=== PATIENT | female | born 1955 | race Caucasian/White ===

== ENCOUNTER 2018-07-14 10:47 | Outpatient (CLI) | payer OTHER ==
--- NOTE | 2018-07-14 12:16 | BD ---
BONE DENSITOMETRY USING DEXA: HISTORY: Postmenopausal screening for osteoporosis. FINDINGS: Lumbar Spine: BMD (g/cm2) L1 0.785 T-Score: -1.9 Z-Score: 0.4 L2 0.813 T-Score: -2.0 Z-Score: -0.3 L3 1.102 T-Score: 0.2 Z-Score: 1.9 L4 1.144 T-Score: 0.8 Z-Score: 2.5 L1-L4 0.960 T-Score: -0.8 Z-Score: 0.9 Femoral Neck: 0.724 T-Score: -1.1 Z-Score: 0.3 Total Femur: 0.801 T-Score: -1.2 Z-Score: 0.0 The 10-year fracture risk for a major osteoporotic fracture is 7.2% and for a hip fracture is 0.5%. Impression: Osteopenia. POS: [facility]
== END 2018-07-14 10:48 | disposition home or self-care (01) ==
LOC: BICMAMMO 10:47
PROVIDERS: ATTEND Internal Medicine
DX: Z13.820 Encounter for screening for osteoporosis (principal); M85.89 Other specified disorders of bone density and structure, multiple sites
CPT/HCPCS: 77080